=== PATIENT | male | born 1950 | race Caucasian/White ===

== ENCOUNTER → 2021-03-06 | Outpatient (CLI) | payer MEDICARE, OTHER | END | disposition home or self-care (01) | LOC: CARD DIAG 10:54 | PROVIDERS: ATTEND Internal Medicine | DX: I08.3 Combined rheumatic disorders of mitral, aortic and tricuspid valves (principal) | CPT/HCPCS: 93306 ==

== ENCOUNTER 2021-04-13 12:28 | Emergency (ER) | payer MEDICARE, OTHER ==
[~2021-04-13] VITALS: Ht 182.9 cm; Wt 75.8 kg
[2021-04-13 13:20] VITALS: BP 111/71
== END 2021-04-13 13:22 | disposition home or self-care (01) ==
LOC: ER 12:28
DX: Z13.89 Encounter for screening for other disorder (principal); R41.0 Disorientation, unspecified; F41.9 Anxiety disorder, unspecified
CPT/HCPCS: 99281

== ENCOUNTER 2021-10-02 12:59 | Outpatient (CLI) | payer MEDICARE, OTHER | END 2021-10-02 23:59 | disposition home or self-care (01) | LOC: RAD 12:59 | PROVIDERS: ATTEND General Practice | DX: R13.12 Dysphagia, oropharyngeal phase (principal); K21.9 Gastro-esophageal reflux disease without esophagitis; Z79.899 Other long term (current) drug therapy | CPT/HCPCS: 74230 ==